=== PATIENT | male | born 1970 | race Caucasian/White ===

== ENCOUNTER 2016-05-26 13:23 | Emergency (ER) | payer SELFPAY ==
[2016-05-26] MEDS ORDERED: Sodium Chloride 0.9% 1,000 ML IV ONE (13:38)
[2016-05-26] MEDS ORDERED: Ondansetron 4 MG/2 ML SDV IVPUSH ONE (13:40)
[2016-05-26] MEDS ORDERED: Ibuprofen 800 MG Tab PO ONE (13:40)
[2016-05-26 14:21] LABS: CHLORIDE,CL 100 mmol/L (98-110); SODIUM,NA 132 mmol/L (136-146)
--- NOTE | 2016-05-26 14:48 | EDM.PDOC ---
ED HPI GENERAL MEDICAL PROBLEM - General Chief Complaint: Fever Stated Complaint: FEVER Time Seen by Provider: 05/26/16 13:39 Source of Information: Reports: Patient History Limitations: Reports: No limitations - History of Present Illness INITIAL COMMENTS - FREE TEXT/NARRATIVE: History of present illness: [46-year-old male comes in complaining of fever, malaise and just generally feeling unwell for the last 3 days.] Review of systems: As per history of present illness and below otherwise all systems reviewed and negative. Past medical history: As per history of present illness and as reviewed below otherwise noncontributory. Surgical history: As per history of present illness and as reviewed below otherwise noncontributory. Social history: No reported history of drug or alcohol abuse. Family history: As per history of present illness and as reviewed below otherwise noncontributory. Physical exam: HEENT: Atraumatic, normocephalic, pupils reactive, negative for conjunctival pallor or scleral icterus, mucous membranes moist with oral pharyngeal erythema , throat clear, neck supple, nontender, trachea midline. Lungs: Clear to auscultation, breath sounds equal bilaterally, chest nontender. Heart: S1S2, regular, negative for clicks, rubs, or JVD. Abdomen: Soft, nondistended, nontender. Negative for masses or hepatosplenomegaly. Negative for costovertebral tenderness. Pelvis: Stable nontender. Genitourinary: Deferred. Rectal: Deferred. Extremities: Atraumatic, negative for cords or calf pain. Neurovascular unremarkable. Neuro: Awake, alert, oriented. Cranial nerves II through XII unremarkable. Cerebellum unremarkable. Motor and sensory unremarkable throughout. Exam nonfocal. Diagnostics: [] Therapeutics: [] Impression: [Bacterial pharyngitis] Plan: [Antibiotics and supportive care] Definitive disposition and diagnosis as appropriate pending reevaluation and review of above. - Related Data Allergies Allergy/AdvReac Type Severity Reaction Status Date / Time No Known Allergies Allergy Verified 05/26/16 13:44 Home Meds: Home Meds . [No Known Home Meds] 05/26/16 [History] Past Medical History - Past Health History Medical/Surgical History: Denies Medical/Surgical History Social & Family History - Family History Family Medical History: Noncontributory - Tobacco Use Smoking Status *Q: Never Smoker - Caffeine Use Caffeine Use: Reports: Coffee - Recreational Drug Use Recreational Drug Use: No ED ROS GENERAL - Review of Systems Review Of Systems: See Below (See history of present illness) ED EXAM, GENERAL - Physical Exam Exam: See Below (History of present illness) Course - Vital Signs Last Recorded V/S: Last Vital Signs Temp 37.2 C 05/26/16 14:19 Pulse 80 05/26/16 13:44 Resp 16 05/26/16 13:44 BP 134/84 05/26/16 13:44 Pulse Ox 95 05/26/16 13:44 - Orders/Labs/Meds Labs: Laboratory Tests 05/26/16 05/26/16 Range/Units 13:45 13:45 WBC 7.17 (4.0-11.0) K/uL RBC 5.52 (4.50-5.90) M/uL Hgb 16.6 (13.0-17.0) g/dL Hct 46.9 (38.0-50.0) % MCV 85.0 (80.0-98.0) fL MCH 30.1 (27.0-32.0) pg MCHC 35.4 (31.0-37.0) g/dL RDW Std Deviation 38.8 (28.0-62.0) fl RDW Coeff of Reyna 13 (11.0-15.0) % Plt Count 138 L (150-400) K/uL MPV 11.50 (7.40-12.00) fL Neut % (Auto) 72.4 (48.0-80.0) % Lymph % (Auto) 19.2 (16.0-40.0) % [place] % (Auto) 7.7 (0.0-15.0) % Eos % (Auto) 0.6 (0.0-7.0) % Baso % (Auto) 0.1 (0.0-1.5) % Neut # (Auto) 5.2 (1.4-5.7) K/uL Lymph # (Auto) 1.4 (0.6-2.4) K/uL [place] # (Auto) 0.6 (0.0-0.8) K/uL Eos # (Auto) 0.0 (0.0-0.7) K/uL Baso # (Auto) 0.0 (0.0-0.1) K/uL Nucleated RBC % 0.0 /100WBC Nucleated RBCs # 0 K/uL Sodium 132 L (136-146) mmol/L Potassium 4.0 (3.5-5.1) mmol/L Chloride 100 (98-110) mmol/L Carbon Dioxide 20 L (21-31) mmol/L BUN 12 (6.0-23.0) mg/dL Creatinine 1.1 (0.6-1.5) mg/dL Est Cr Clr Drug Dosing 69.52 mL/min Estimated GFR (MDRD) > 60.0 ml/min Glucose 288 H (60-110) mg/dL Calcium 9.4 (8.8-10.8) mg/dL Total Bilirubin 0.6 (0.1-1.5) mg/dL AST 17 (5-40) IU/L ALT 27 (8-54) IU/L Alkaline Phosphatase 62 (40-150) Total Protein 7.6 (6.0-8.0) g/dL Albumin 4.3 (3.5-5.0) g/dL Globulin 3.3 (2.0-3.5) g/dL Albumin/Globulin Ratio 1.3 (1.3-2.8) Meds: Medications Discontinued Medications Generic Name Dose Route Start Last Admin Trade Name Freq PRN Reason Stop Dose Admin Ibuprofen 800 mg 05/26/16 13:40 05/26/16 14:19 Motrin PO 05/26/16 13:41 800 mg ONETIME ONE Administration Ondansetron HCl 8 mg 05/26/16 13:40 Zofran IVPUSH 05/26/16 13:41 ONETIME ONE Departure - Departure Time of Disposition: 14:49 Disposition: Home, Self-Care 01 Condition: good Clinical Impression: Acute bacterial pharyngitis Sinusitis Qualifiers: Sinusitis location: unspecified location Chronicity: acute Recurrence: not specified as recurrent Qualified Code(s): J01.90 - Acute sinusitis, unspecified Instructions: Fever, Adult, [id number] Forms: ED Department Discharge Additional Instructions: The following information is given to patients seen in the emergency department who are being discharged to home. This information is to outline your options for follow-up care. We provide all patients seen in our emergency department with a follow-up referral. The need for follow-up, as well as the timing and circumstances, are variable depending upon the specifics of your emergency department visit. If you don't have a primary care physician on staff, we will provide you with a referral. We always advise you to contact your personal physician following an emergency department visit to inform them of the circumstance of the visit and for follow-up with them and/or the need for any referrals to a consulting specialist. The emergency department will also refer you to a specialist when appropriate. This referral assures that you have the opportunity for follow-up care with a specialist. All of these measure are taken in an effort to provide you with optimal care, which includes your follow-up. Under all circumstances we always encourage you to contact your private physician who remains a resource for coordinating your care. When calling for follow-up care, please make the office aware that this follow-up is from your recent emergency room visit. If for any reason you are refused follow-up, please contact the [facility] Emergency Department at and asked to speak to the emergency department charge nurse. Take medication as directed Take ibuprofen 800 mg every 8 hours for the next 3 days Restore fluid intake decrease her caffeine and alcohol intake for the next week to 10 days Followup the primary care provider one to 2 days Turn to ER as needed as discussed
[2016-05-26 15:15] VITALS: BP 140/82
== END 2016-05-26 15:15 | disposition home or self-care (01) ==
LOC: MW.ED 13:23
DX: J20.8 Acute bronchitis due to other specified organisms (principal); B96.89 Other specified bacterial agents as the cause of diseases classified elsewhere; J01.90 Acute sinusitis, unspecified
CPT/HCPCS: 36415; 80053; 85025; 99283; A9270; 99284

== ENCOUNTER 2016-07-05 17:30 | Emergency (ER) | payer OTHER ==
[2016-07-05 17:44] VITALS: BP 162/92
[2016-07-05] MEDS ORDERED: Bupivacaine 0.5% 10 ML SDV ONE (17:46)
--- NOTE | 2016-07-05 18:15 | EDM.PDOC ---
ED HPI GENERAL MEDICAL PROBLEM - General Chief Complaint: Upper Extremity Injury/Pain Stated Complaint: FINGER WAS CUT OFF Time Seen by Provider: 07/05/16 17:42 - History of Present Illness INITIAL COMMENTS - FREE TEXT/NARRATIVE: HISTORY AND PHYSICAL: History of present illness: Patient 46-year-old male who presents with a concern of acute injury to second digit of his right hand that occurred at work as well for trauma which he sustained a partial amputation of the distal aspect of the second digit he denies other concern tetanus status is to be determined Review of systems: As per history of present illness and below otherwise all systems reviewed and negative. Past medical history: As per history of present illness and as reviewed below otherwise noncontributory. Surgical history: As per history of present illness and as reviewed below otherwise noncontributory. Social history: No reported history of drug or alcohol abuse. Family history: As per history of present illness and as reviewed below otherwise noncontributory. Physical exam: HEENT: Atraumatic, normocephalic, pupils reactive, negative for conjunctival pallor or scleral icterus, mucous membranes moist, throat clear, neck supple, nontender, trachea midline. Lungs: Clear to auscultation, breath sounds equal bilaterally, chest nontender. Heart: S1S2, regular, negative for clicks, rubs, or JVD. Abdomen: Soft, nondistended, nontender. Negative for masses or hepatosplenomegaly. Negative for costovertebral tenderness. Pelvis: Stable nontender. Genitourinary: Deferred. Rectal: Deferred. Extremities: Partial distal amputation noted distal aspect second digit right hand there is no bone exposed there is complete avulsion of the nail and loss of the tuft distally Neuro: Awake, alert, oriented. Cranial nerves II through XII unremarkable. Cerebellum unremarkable. Motor and sensory unremarkable throughout. Exam nonfocal. Diagnostics: X-ray right hand Therapeutics: Patient was anesthetized with Marcaine 0.5% his wound is irrigated with copious amounts of 0.9 normal saline Gelfoam Vaseline gauze tube gauze dressing were applied splint was applied Impression: #1 acute injury right hand (partial amputation) second digit Definitive disposition and diagnosis as appropriate pending reevaluation and review of above. Right 2-Index finger Pain Score (Numeric/FACES): 1 - Related Data Allergies Allergy/AdvReac Type Severity Reaction Status Date / Time No Known Allergies Allergy Verified 07/05/16 17:31 Home Meds: Home Meds . [No Known Home Meds] 05/26/16 [History] Past Medical History - Past Health History Medical/Surgical History: Denies Medical/Surgical History Social & Family History - Family History Family Medical History: Noncontributory - Tobacco Use Smoking Status *Q: Never Smoker - Caffeine Use Caffeine Use: Reports: Coffee - Recreational Drug Use Recreational Drug Use: No Review of Systems - Review of Systems Review Of Systems: ROS reveals no pertinent complaints other than HPI. Trauma Exam - Physical Exam Exam: See Below (See dictation) Course - Vital Signs Last Recorded V/S: Last Vital Signs Temp 36.7 C 07/05/16 17:32 Pulse 68 07/05/16 17:32 Resp 16 07/05/16 17:32 BP 162/92 H 07/05/16 17:32 Pulse Ox 97 07/05/16 17:32 - Orders/Labs/Meds Orders: Active Orders 24 hr Category Date Time Status Hand 2V Rt [CR] Stat Exams 07/05/16 17:44 Taken Meds: Medications Discontinued Medications Generic Name Dose Route Start Last Admin Trade Name Dennisq PRN Reason Stop Dose Admin Bupivacaine HCl Confirm 07/05/16 17:46 Sensorcaine-Mpf 0.5% Administered 07/05/16 17:47 Dose 10 ml .ROUTE .STK-MED ONE Departure - Departure Time of Disposition: 18:13 Disposition: Home, Self-Care 01 Condition: good Clinical Impression: Hand injury - Discharge Information Forms: ED Department Discharge Additional Instructions: The following information is given to patients seen in the emergency department who are being discharged to home. This information is to outline your options for follow-up care. We provide all patients seen in our emergency department with a follow-up referral. The need for follow-up, as well as the timing and circumstances, are variable depending upon the specifics of your emergency department visit. If you don't have a primary care physician on staff, we will provide you with a referral. We always advise you to contact your personal physician following an emergency department visit to inform them of the circumstance of the visit and for follow-up with them and/or the need for any referrals to a consulting specialist. The emergency department will also refer you to a specialist when appropriate. This referral assures that you have the opportunity for followup care with a specialist. All of these measure are taken in an effort to provide you with optimal care, which includes your followup. Under all circumstances we always encourage you to contact your private physician who remains a resource for coordinating your care. When calling for followup care, please make the office aware that this follow-up is from your recent emergency room visit. If for any reason you are refused follow-up, please contact the [facility] emergency department at and asked to speak to the emergency department charge nurse [facility] specialty clinic-Plastics [address] [place] [id number] [facility] Specialty Care - Orthopedic Clinic Professional Building [address] [place] [address], [address] [place] [id number] Followup with hand clinic above and/or ortho clinic as discussed Keflex as prescribed hydrocodone as prescribed wound care and dressing as discussed splint as discussed return as needed as discussed - My Orders Last 24 Hours: My Active Orders 07/05/16 17:44 Hand 2V Rt [CR] Stat - Assessment/Plan Last 24 Hours: My Active Orders 07/05/16 17:44 Hand 2V Rt [CR] Stat
[2016-07-05] MEDS ORDERED: Diphtheria,Pertussis(Acell),Tetanus Vaccine 0.5 ML Syringe IM ONE (18:16)
[2016-07-05] MEDS ORDERED: ceFAZolin 1,000 MG VIAL IM ONE (18:16)
[2016-07-05] MEDS ORDERED: ceFAZolin 1 GM Vial ONE (18:22)
[2016-07-05] MEDS ORDERED: Water For Injection, Sterile 20 ML ONE (18:23)
--- NOTE | 2016-07-09 10:05 | CR ---
EXAM DATE: 07/05/16 PATIENT'S AGE: 46 Patient: TK GRIFFIN Facility: [place], [place] Site . Site : [id number] Study: XRay Extremity hand [id number]/[id number] 6:04:33 PM Ordering Physician: Cailin Cobian Final Report: INDICATION: Dictation distal 2nd digit with crushing injury TECHNIQUE: Two views right hand. COMPARISON: None FINDINGS: Osseous and soft tissue amputation involving the distal phalanx of the 2nd digit. The proximal distal phalanx and adjacent PIP joint are intact. Non intra- articular fracture is present involving the remaining portion of the distal phalanx. A punctate radiopaque foreign body are noted in the soft tissues adjacent to the amputation site. IMPRESSION: Osseous and soft tissue amputation involving portions of the distal phalanx of the 2nd digit. A non intra-articular fractures present in the remaining portion of the distal phalanx of the 2nd digit. Punctate radiopaque foreign body in the soft tissues adjacent to the remaining distal phalanx of the 2nd digit. Dictated by Denis Garcia MD @ 07/05/2016 6:17:57 PM Dictated by: Denis Garcia MD @ 07/05/2016 18:18:06 (Electronic Signature) Report Signed by Proxy. MATILDA
== END 2016-07-05 19:09 | disposition home or self-care (01) ==
LOC: MW.ED 17:30
DX: S68.122A Partial traumatic metacarpophalangeal amputation of right middle finger, initial encounter (principal); X58.XXXA Exposure to other specified factors, initial encounter; Y99.0 Civilian activity done for income or pay; Z23 Encounter for immunization
CPT/HCPCS: 73120; 90471; 90715; 96372; 99283; J0690

== ENCOUNTER 2016-07-06 17:17 | Emergency (ER) | payer OTHER ==
[2016-07-06 17:51] VITALS: BP 146/82
== END 2016-07-06 17:48 | disposition left against medical advice (07) ==
LOC: MW.ED 17:17
DX: Z53.20 Procedure and treatment not carried out because of patient's decision for unspecified reasons (principal)
CPT/HCPCS: 99281